=== PATIENT | male | born 1990 | race Caucasian/White ===

== ENCOUNTER 2020-06-08 10:13 | Day surgery (SDC) | payer OTHER ==
[~2020-06-08] VITALS: Ht 175.3 cm; Wt 63.6 kg
[2020-06-08] VITALS (7 sets, daily range): BP systolic 115–124; BP diastolic 68–85; PULSE 69–94; TEMP 98.4–99.3
[2020-06-08] MEDS ORDERED: ATIVAN 0.50.5 MG/TAB PO (10:48)
[2020-06-08] MEDS ORDERED: ZOLOFT 50MG50 MG PO (10:48)
[2020-06-08] MEDS ORDERED: TYLENOL 500MG500 MG PO (10:49)
[2020-06-08] MEDS ORDERED: MOTRIN 600600 MG/TAB PO (12:45)
[2020-06-08] MEDS ORDERED: NORCO 325 MG-51 TAB PO (12:45)
[2020-06-08] MEDS ORDERED: ZOFRAN ODT4 MG PO (12:46)
--- NOTE | 2020-06-08 14:55 | NUR ---
The patient arrived back to [facility] from recovery room at this time. The patient appears alert and oriented and reports pain in his left groin/abodmen. Post operative vital signs were started at this time. The patient agrees to try some pepsi, applesauce, and a muffin. The patient's incision sites are without redness or edema and covered with surgical glue. Call light is within reach. Will continue to monitor the patient.
--- NOTE | 2020-06-08 15:10 | NUR ---
The patient apppears to be tolerating the food and drink well. Vital signs appear stable. Call light is within reach. Will continue to monitor the patient.
--- NOTE | 2020-06-08 15:21 | NUR ---
The patient was given a PRN dose of [place] one tab at this time. The patient's vital signs appear stable. Call light remains within reach. Will continue to monitor the patient.
--- NOTE | 2020-06-08 15:40 | NUR ---
The patient denies the urge to void at this time and requests to try some grape juice. Vital signs appear stable. Call light is within reach. Will continue to monitor the patient.
--- NOTE | 2020-06-08 16:10 | NUR ---
The patient ambulated to the bathroom with the stand by assistance of one nurse and appeared to tolerate the activity well. The patient attempted to void without much success but voices a desire to be discharged home. Dr. Harkins was notified of the patient's inability to void and desire to be discharged and was ok with this as long as the patient seeks medical care if he is unable to void in 4-6 hours.
--- NOTE | 2020-06-08 16:28 | NUR ---
Discharge instructions were reviewed with the patient at this time. He verbalized understanding and has no questions for the nurse at this time. The patient's IV to is right forearm has been removed and a pressure dressing was applied to the site. The patient is dressed and ready to be escorted ou.t
--- NOTE | 2020-06-08 16:35 | NUR ---
The patient was escorted out via wheelchair to a private vehicle by CHERYL Manriquez. The patient's belongings and discharge paperwork were sent with him. The patient's is present to drive him home.
== END 2020-06-08 16:35 | disposition home or self-care (01) ==
LOC: SDCO 10:13
DX: K40.90 Unilateral inguinal hernia, without obstruction or gangrene, not specified as recurrent (principal); F17.210 Nicotine dependence, cigarettes, uncomplicated; Z88.1 Allergy status to other antibiotic agents; Z79.82 Long term (current) use of aspirin; F32.9 Major depressive disorder, single episode, unspecified; F41.9 Anxiety disorder, unspecified
CPT/HCPCS: C1781; J0690; J1100; J1170; J1885; J2270; J2405; J2704; J3010; J7120